=== PATIENT | female | born 1995 | race Caucasian/White ===

== ENCOUNTER 2021-04-23 14:12 | Emergency (ER) | payer OTHER, SELFPAY ==
--- NOTE | ~2021-04-23 | US_ITS ---
EXAMINATION: US pelvic complete w TV DATE: 04/23/2021 15:14 INDICATION: Heavy vaginal bleeding for 2 days. Comparison:No prior studies for comparison. TECHNIQUE: Multiple transabdominal and endovaginal sonographic images of the pelvis performed. FINDINGS: The uterus measures 9 x 5 x 5.3 cm. The endometrial complex is heterogeneous and thickened measuring 1.4 cm. The right ovary measures 3.3 x 1.8 x 2 cm and the left ovary measures 2.1 x 1.9 x 1.9 cm. There are small follicles in each ovary. Normal doppler signal in both ovaries. There is no free fluid in the pelvis. There are no abnormal masses seen on either side. IMPRESSION: 1. Thickened heterogeneous endometrium measuring 1.4 cm. Cannot exclude retained products of concepti on Reviewed, dictated and finalized at location A. IMPRESSION: 1. Thickened heterogeneous endometrium measuring 1.4 cm. Cannot exclude retaine d products of conception
[2021-04-23 14:20] VITALS: BP 108/79; PULSE 101; RESP 16; TEMP 36.9; O2SAT 100
--- NOTE | 2021-04-23 14:42 | ED.GENADULT ---
HPI - General Adult General Chief complaint: APPLICATION SOFTWARE DEVELOPER Stated complaint: Vaginal Bleeding Source: patient Mode of arrival: ambulatory Limitations: no limitations History of Present Illness HPI narrative: Vanesa is a 26F with a PMH of a mood disorder presented to the ED with excessive vaginal bleeding. She had an induced 2 weeks ago at 8 weeks gestation. She had mild to moderate bleeding afterward. However, 2 days ago she had excessive bleeding (10+pads) which improved yesterday but the same level of heavy bleeding returned today. She also has a lot of bilateral uterine cramping. She also feels weak and lightheaded with the bleeding. Related Data Home Medications Medication Instructions Recorded Confirmed escitalopram oxalate [Lexapro] 20 mg PO DAILY 04/23/21 04/23/21 Allergies Allergy/AdvReac Type Severity Reaction Status Date / Time No Known Allergies Allergy Verified 04/23/21 14:30 Review of Systems Constitutional: Constitutional: Denies chills, Denies fever(s) and Reports weakness Eyes: Eyes: Reports no additional eye complaints ENT: Reports system reviewed and no additional complaints, except as documented Cardiovascular: Cardiovascular: Reports no additional cardiovascular complaints Respiratory: Respiratory: Reports no additional respiratory complaints Gastrointestinal: Gastrointestinal: Reports no additional gastrointestinal complaints Genitourinary: Genitourinary: Reports as per HPI Musculoskeletal: Musculoskeletal: Reports no additional musculoskeletal complaints Integumentary/Breasts: Skin/Breast: Reports system reviewed and no additional complaints, except as docu Neurologic: Reports system reviewed and no additional complaints, except as documented Psychiatric: Psychiatric: Reports no additional psychiatric complaints Endocrine: Endocrine: Reports no additional endocrine complaints Hematologic/Lymphatic: Hematologic/Lymphatic: Reports no additional hematologic/lymphatic complaints Allergic/Immunologic: Allergic/Immunologic: Reports no additional allergic/immunologic complaints Exam Const: General: alert Orientation/consciousness: patient oriented x3 Limitations: No altered mental status Other: Was leaning over the bed rocking side to side with mild distress HENMT: Head: normal to inspection Other: atraumatic Eyes: Conjunctivae: conjunctivae normal Pupils: Equal, round and reactive pupils present Neck: Neck: normal visual inspection Chest: Chest palpation & inspection: normal inspection of the chest Resp: Effort & Inspection: normal respiratory effort Cardio: Rate: regular rate Rhythm: regular rhythm Skin: General skin exam: normal color Rashes: no rashes Neuro: General: patient oriented x3 and moves all extremities Extrem: General: normal to inspection Psych: Appearance: grossly normal Affect: Anxious affect present Thought content: Yes Normal thought content present Course Course Emergency Course: Ordered labs and US of her pelvis. She declined meds for pain. EXAMINATION: US pelvic complete w TV DATE: 04/23/2021 15:14 INDICATION: Heavy vaginal bleeding for 2 days. Comparison:No prior studies for comparison. TECHNIQUE: Multiple transabdominal and endovaginal sonographic images of the pelvis performed. FINDINGS: The uterus measures 9 x 5 x 5.3 cm. The endometrial complex is heterogeneous and thickened measuring 1.4 cm. The right ovary measures 3.3 x 1.8 x 2 cm and the left ovary measures 2.1 x 1.9 x 1.9 cm. There are small follicles in each ovary. Normal doppler signal in both ovaries. There is no free fluid in the pelvis. There are no abnormal masses seen on either side. IMPRESSION: 1. Thickened heterogeneous endometrium measuring 1.4 cm. Cannot exclude retained products of conception I called the transfer line and they contacted Dr. Saucedo who called back at 1611 who recommended transfer. However, shortly after this she passed out, went pale and had some non-b
[2021-04-23 14:55] LABS: Basophils Absolute Auto 0.03 K/mm3 (0.00-0.10); Basophils Percent Auto 0.3 % (0.0-1.0); Eosinophils Absolute Auto 0.26 K/mm3 (0.02-0.50); Eosinophils Percent Auto 2.5 % (1.0-6.0); Hematocrit 27.9 % (35.0-49.0); Hemoglobin 9.6 g/dL (12.0-15.0); Immature Granulocyte Absolute 0.08 K/mm3 (0.00-0.00); Immature Granulocyte Percent A 0.8 % (0.0-0.0); Lymphocytes Absolute Auto 2.19 K/mm3 (1.10-4.50); Lymphocytes Percent Auto 20.7 % (18.0-42.0); Mean Corpuscular HGB Conc 34.4 g/dL (32.0-36.0); Mean Corpuscular Hemoglobin 29.5 pg (27.0-31.0); Mean Corpuscular Volume 85.8 fL (78.0-102.0); Mean Platelet Volume 10.4 fl (9.2-11.8); Monocytes Absolute Auto 0.65 K/mm3 (0.10-0.90); Monocytes Percent Auto 6.1 % (2.0-11.0); Neutrophils Absolute Auto 7.4 K/mm3 (1.7-7.2); Neutrophils Percent Auto 69.6 % (50.0-70.0); Platelet Count Result 252 K/mm3 (150-420); Red Blood Count 3.25 M/mm3 (4.20-5.40); Red Cell Distribution Width 12.3 % (11.6-14.4); White Blood Count 10.6 K/mm3 (4.8-10.8)
[2021-04-23 15:08] LABS: Prothrombin Time 10.9 Seconds (9.50-12.10)
[2021-04-23 15:12] LABS: Alanine Aminotransferase 21 U/L (14-59); Albumin Level 3.9 g/dL (3.4-5.0); Alkaline Phosphatase 72 U/L (46-116); Anion Gap 11 mmol/L (8-16); Aspartate Amino Transferase 12 U/L (15-37); Bilirubin,Total 0.3 mg/dL (0.00-1.00); Blood Urea Nitrogen 11 mg/dL (7-18); Calcium 8.7 mg/dL (8.5-10.1); Carbon Dioxide 26 mmol/L (21-32); Chloride 106 mmol/L (98-108); Estimated CRCL calculation 99 ml/min; Estimated Glomerular Filt Rate > 60; Glucose 111 mg/dL (70-99); Osmolality Calculated 296 mOsm/kg (285-295); Potassium 3.5 mmol/L (3.5-5.1); Sodium 143 mmol/L (136-145); Total Protein 6.9 g/dL (6.4-8.2)
--- NOTE | 2021-04-23 15:58 | PC.NURSE ---
[facility] [employer] CONTACTED AT THIS TIME FOR TRANSFER. AWAITING CALL BACK.
[2021-04-23] MEDS: SODIUM CHLORIDE 0.9% IV 1,000 ML 2000 ML IV CONT (16:20)
[2021-04-23] MEDS: ONDANSETRON INJ 4 MG/2 ML VIAL IV PUSH (16:36)
--- NOTE | 2021-04-23 16:43 | PC.NURSE ---
call light initiated. RN arrives to room 3 to find patient pale, diaphoretic, vomiting, and unresponsive. RN calls for assistance. BP 72/39. IV initiated. Bolus init
[2021-04-23 17:17] LABS: Basophils Absolute Auto 0.01 K/mm3 (0.00-0.10); Basophils Percent Auto 0.1 % (0.0-1.0); Eosinophils Absolute Auto 0.15 K/mm3 (0.02-0.50); Eosinophils Percent Auto 1.5 % (1.0-6.0); Hematocrit 20.7 % (35.0-49.0); Immature Granulocyte Absolute 0.06 K/mm3 (0.00-0.00); Immature Granulocyte Percent A 0.6 % (0.0-0.0); Lymphocytes Absolute Auto 1.64 K/mm3 (1.10-4.50); Lymphocytes Percent Auto 16.7 % (18.0-42.0); Mean Corpuscular HGB Conc 33.8 g/dL (32.0-36.0); Mean Corpuscular Hemoglobin 29.4 pg (27.0-31.0); Mean Platelet Volume 11.3 fl (9.2-11.8); Monocytes Absolute Auto 0.45 K/mm3 (0.10-0.90); Monocytes Percent Auto 4.6 % (2.0-11.0); Neutrophils Absolute Auto 7.5 K/mm3 (1.7-7.2); Neutrophils Percent Auto 76.5 % (50.0-70.0); Platelet Count Result 192 K/mm3 (150-420); Red Blood Count 2.38 M/mm3 (4.20-5.40); Red Cell Distribution Width 12.4 % (11.6-14.4); White Blood Count 9.8 K/mm3 (4.8-10.8)
[2021-04-23 17:44] VITALS: BP 95/61; PULSE 86; RESP 10; O2SAT 100
== END 2021-04-23 17:40 | disposition short-term general hospital (02) ==
PROVIDERS: Emergency Provider Family Medicine
DX: O03.6 Delayed or excessive hemorrhage following complete or unspecified spontaneous abortion (principal)
CPT/HCPCS: 36415; 76830; 76856; 80053; 84702; 85025; 85610; 86850; 86900; 86901; 96361; 96374; 99285; J2405; J7030

== ENCOUNTER 2021-04-23 18:31 | Observation (INO) | payer OTHER, SELFPAY ==
[2021-04-23] VITALS (10 sets, daily range): BP systolic 90–112; BP diastolic 48–78; PULSE 65–97; RESP 14–18; TEMP 36.5–36.8; O2SAT 98–100; BMI 28.6
--- NOTE | 2021-04-23 18:20 | P.PNAN_ITS ---
Anes - Initial Pre Proc Eval Procedure: Operation Date: 04/23/21 18:45 Proposed Procedures p D&C Suction and Sharp - Jae Park DO Date/Time: 04/23/21 18:20 Surgeon: Jae Park DO Pre Op Diagnosis: retained products of conception Patient Data Age: 26 Gender: F Height: Weight: Allergies Allergy/AdvReac Type Severity Reaction Status Date / Time No Known Allergies Allergy Verified 04/23/21 14:30 Home Medications Medication Instructions Recorded Confirmed Type escitalopram oxalate [Lexapro] 20 mg PO DAILY 04/23/21 04/23/21 History Patient hx anesthesia problems: none Family hx anesthesia problems: none [facility] Past Medical History Medical History Anxiety Depression Anes - Eval Final PreProcedure Day of Procedure 04/23/21 18:20 Patient weight: overweight Heart: regular rate and rhythm Lungs: clear to auscultation Airway: Mallampati scale class 1 Neurological: alert and oriented Last oral intake: >/= 8 hours ASA classification: II Emergent: yes Anesthetic plan: proceed Anesthesia type and monitoring: general GIVS and standard monitoring Informed Consent: The patient's anesthetic plan and its attendant risks and benefits were discussed with the patient/family/POA. Questions were solicited and answers provided to the satisfaction of the patient/family/POA.
--- NOTE | 2021-04-23 18:30 | PM.IMHP ---
H&P: HPI History of Present Illness Date/Time: 04/23/21 18:30 Chief Complaint: Vaginal bleeding, acute blood loss anemia. Narrative: This is a previously healthy 26-year-old female who presented to the emergency department at the [facility] earlier today for evaluation of vaginal bleeding. She is 2 weeks status post medical termination of and she reports that initially she was having vaginal bleeding equivalent to that she would have with her normal menstrual cycle. Over the past 2 days she has had a dramatic increase in bleeding and reports going through 10+ pads a day. Today she was driving through the area on her way home about 3 hours north of here when she developed significant cramping with increasing bleeding as well as feelings of weakness and lightheadedness. While awaiting transfer to [place] for D&C with Dr. Park, she began feeling lightheaded, nauseated, and sweating and had a syncopal episode. At the time my evaluation she is in preop and looks well. She denies fever, chills, sweats, chest pain, shortness of breath, current abdominal pain, and dysuria. Review of Systems Review of Systems: Twelve systems were reviewed with pertinent positives and negatives as per HPI. No fever, chills, or sweats. No recent cold or flu symptoms. No known exposure to those positive for COVID-19. She denies chest pain shortness of breath. Except as documented, all other systems were reviewed and are negative. [facility] Past Medical History Medical History Anxiety Depression Surgical History Surgical History History of wisdom tooth extraction Family History Family History (Updated 04/23/21 @ 20:37 by Tonia Jacques PA-C) Other No significant family history Social History Social History (Updated 04/23/21 @ 20:38 by Tonia Jacques PA-C) Social History: Lives in [place], [place]. Nonsmoker. No alcohol or illicit substance use. She is an vfx artist. Meds Home Medications and Allergies Home Medications Medication Instructions Recorded Confirmed Type escitalopram oxalate [Lexapro] 20 mg PO DAILY 04/23/21 04/23/21 History Allergies Allergy/AdvReac Type Severity Reaction Status Date / Time No Known Allergies Allergy Verified 04/23/21 14:30 Vital Signs Vital Signs - 24 hr 04/23/21 19:06 04/23/21 19:21 04/23/21 19:35 Temperature 98.3 F Pulse Rate 97 85 80 Respiratory Rate 16 18 16 Blood Pressure 90/60 L 104/65 108/68 Pulse Oximetry 100 100 98 04/23/21 19:50 Temperature Pulse Rate 65 Respiratory Rate 14 Blood Pressure 112/58 L Pulse Oximetry 99 Exam Narrative: General: Well-developed female sitting up in bed no distress. HEENT: PERRL, EOMI. Sclerae anicteric. Oral mucosa moist. Oropharynx clear. Neck: Supple. Respiratory: Lungs are clear to auscultation bilaterally. Cardiovascular: Regular rate and rhythm with S1-S2. No murmur, rub, or gallop. Gastrointestinal: Abdomen is soft, nontender, and nondistended with positive bowel sounds. Skin: Warm and dry. No rash or lesions on limited exam. Extremities: No cyanosis, clubbing, or edema. Radial and pedal pulses intact. Neurological: Alert. Cranial nerves 2-12 are grossly intact. No gross focal deficits to casual conversation. Psychiatric: Pleasant and cooperative with normal mood and affect. Judgment and insight intact. H&P: Results Labs Labs: White blood cells 10.6, hemoglobin 9.6, hematocrit 27.9, platelets 252. PT 10.9, INR 1.0. Sodium 143, potassium 3.5, chloride 106, carbon dioxide 26, BUN 11, creatinine 0.81, glucose 111, calcium 8.7. Total bilirubin 0.3, AST 12, ALT 21, alkaline phosphatase 72. Beta hCG 4882. Imaging Pelvic US: Radiologist's impression: Thickened heterogeneous endometrium measuring 1.4 cm. Cannot exclude retained products of conception P Asse
--- NOTE | 2021-04-23 18:36 | PM.IMHP ---
H&P: HPI History of Present Illness Date/Time: 04/23/21 18:36 26yo s/p medical termination of 2 weeks ago presented to [facility] for heavy vaginal bleeding. She states that she has been experiencing intermittent bleeding since that time but today has been especially heavy. She is in transit to her home in 3-4 hours away. She had to stop many times during her drive due to her bleeding. She started to feel lightheaded and dizzy which prompted her to go to the hospital. In the [facility], she had a syncopal episode. Chief Complaint: Heavy vagina bleeding Review of Systems Constitutional: Constitutional: Reports weakness Cardiovascular: Cardiovascular: Reports no additional cardiovascular complaints Respiratory: Respiratory: Reports no additional respiratory complaints Gastrointestinal: Gastrointestinal: Reports no additional gastrointestinal complaints Genitourinary: Genitourinary: Reports abnormal vaginal bleeding Musculoskeletal: Musculoskeletal: Reports no additional musculoskeletal complaints Integumentary/Breasts: Skin/Breast: Reports system reviewed and no additional complaints, except as docu Neurologic: Reports dizziness and Reports weakness Psychiatric: Psychiatric: Reports no additional psychiatric complaints Endocrine: Endocrine: Reports no additional endocrine complaints Hematologic/Lymphatic: Hematologic/Lymphatic: Reports no additional hematologic/lymphatic complaints Allergic/Immunologic: Allergic/Immunologic: Reports no additional allergic/immunologic complaints PMFSH Past Medical History Medical History Anxiety Depression Meds Home Medications and Allergies Home Medications Medication Instructions Recorded Confirmed Type escitalopram oxalate [Lexapro] 20 mg PO DAILY 04/23/21 04/23/21 History Allergies Allergy/AdvReac Type Severity Reaction Status Date / Time No Known Allergies Allergy Verified 04/23/21 14:30 Exam Const: General: cooperative, healthy appearing, comfortable, no acute distress, well developed, alert, awake and Physically active Resp: Effort & Inspection: normal respiratory effort, able to speak in complete sentences, normal respiratory pattern, no audible wheezes and no cough Cardio: Rate: regular rate GI: Inspection: normal to inspection GI Palp: No abdominal tenderness, Yes Soft to palpation, No Firmness to palpation present (GI), No Tenderness to palpation present (GI), No Guarding due to palpation present (GI) and No Rigid due to palpation Skin: General skin exam: normal color Neuro: General: oriented to person, oriented to place and oriented to time Psych: Appearance: grossly normal Mental Status: mental status grossly normal Speech and movement: Normal speech and movement present Affect: normal affect Attitude: cooperative Thought process: Normal thought process present Thought content: Yes Normal thought content present Insight: Good insight present (Psych) Judgement: Good judgement present (Psych) Assessment and Plan Assessment and plan (1) complicated with hemorrhage: Code(s): O03.6 - Delayed or excessive hemorrhage following complete or unspecified spontaneous Status: Acute (2) Retained products of conception after induced termination of : Code(s): O07.4 - Failed attempted termination of without complication Status: Acute Assessment and Plan: US reviewed, endometrial stripe 1.4cm with retained products of conception Risks, benefits, alternatives discussed. Will proceed with Suction D&C (3) Acute blood loss anemia: Code(s): D62 - Acute posthemorrhagic anemia Status: Acute Assessment and Plan: Hb9 -> 7 Patient agrees to transfusion
--- NOTE | 2021-04-23 18:45 | WPDHPUPDATE1 ---
History and Physical Update Update Date/Time: 04/23/21 18:45 History and Physical has been reviewed, including an updated exam of the patient. There are NO changes in the patient's condition. Risks, benefits, and alternatives have been discussed and questions answered. Patient agrees to proceed with procedure.
[2021-04-23] MEDS: LACTATED RINGERS 1,000 ML 30 ML IV CONT (19:06)
--- NOTE | 2021-04-23 19:06 | PM.OP ---
Procedure Note - Brief Procedure Note - Brief Date of procedure: 04/23/21 Pre-op diagnosis: retained products of conception Post-op diagnosis: same Procedure performed: Suction D&C Anesthesia: GETA Surgeon: Jae Park DO Estimated blood loss (mL): 100 Drains: No Packing: No Pathology: yes Complications: No immediate complications Condition: stable Disposition: PACU Findings: Retained products of conception
--- NOTE | 2021-04-23 19:15 | W.PM.PROC2 ---
Procedure Note - Detailed Date of Procedure 04/23/21 Pre-op Diagnosis retained products of conception Post-op Diagnosis same Procedure Performed Suction D&C Surgeon Jae Park DO Anesthesia general Indications 26yo s/p medical termination of 2 weeks ago with retained products of conception Findings Retained products of conception Description of Procedure Patient was taken to the OR where she was moved to the OR table. After adequate anesthesia was established, patient was placed in dorsal lithotomy position with Ricardo stirrups for support. Vagina and perineum was prepped with Betadine. She was then draped in the usual sterile fashion. Timeout was performed to identify the correct patient and procedure. A speculum was inserted into the vagina, clots were noted. Sponge stick used to clear clots from the vagina. Anterior lip of cervix was grasped with single tooth tenaculum. Cervix was dilated with dilators. #8 suction curette was placed in the uterus and suction was turned on. Products of conception was obtained. 5 passed were made with the curette until the uterine cavity was thought to be empty. Minimal bleeding noted after the procedure. Tenaculum and speculum were removed. Good hemostasis noted. All sponge and instrument counts were correct and the patient was transferred to the recovery room in stable condition. Estimated Blood Loss 100.0 Drains No Packing No Pathology yes Complications No immediate complications Condition stable Disposition floor (Will keep for observation overnight for symptomatic anemia in context of hemorrhage with retained products of conception. )
--- NOTE | 2021-04-23 20:42 | SUR.PHASEI ---
PT REPORT CALLED TO FLOOR RN. AWAITING FOR TRANSPORT. SIGNIF OTHER UPDATED.
[2021-04-23] MEDS: IBUPROFEN 600 MG TABLET PO (21:23)
--- NOTE | 2021-04-23 21:31 | ADMGEN ---
This patient, Vanesa Jasso, was admitted to 2 Medical Room 242-01. Patient/family oriented to hospital policies and general routines including ID bracelet, bed and alarms, visiting hours, pain management, procedures, bathroom and other care routines, personal items, smoking policy, room service/diet, and visiting hours. Information on how to activate the Rapid Response Team has been discussed. Patient/Family are encouraged to report perceived risks to care and to ask questions if they do not understand what they are told or what they should do.
[2021-04-23] MEDS: ONDANSETRON INJ 4 MG/2 ML VIAL IV PUSH (22:03)
[2021-04-24] VITALS (12 sets, daily range): BP systolic 91–110; BP diastolic 45–63; PULSE 74–91; RESP 18–21; TEMP 36.1–36.4; O2SAT 98–100; BMI 28.8
[2021-04-24] MEDS: SODIUM CHLORIDE 0.9% IV 250 ML 30 ML IV CONT (01:29)
[2021-04-24] MEDS: FERROUS SULFATE 324 MG TABLET PO (09:07)
[2021-04-24] MEDS: ESCITALOPRAM OXALATE 10 MG TABLET 20 MG PO (09:07)
--- NOTE | 2021-04-24 09:56 | PM.DS ---
DS: Admitting Diagnosis Admitting Diagnosis Vaginal bleeding DS: Discharge Diagnosis Discharge Diagnosis (1) complicated with hemorrhage: Code(s): O03.6 - Delayed or excessive hemorrhage following complete or unspecified spontaneous Status: Inactive Assessment and Plan: Patient is a 26-year-old woman with no chronic medical history, who presented with vaginal bleeding. The patient states she found out she was in February [facility] . She had slight vaginal bleeding for a few weeks then it resolved. Then she developed heavy bleeding for a few days and it resolved. She went out of town and had been feeling well until she got in the car to drive back home. She developed more vaginal bleeding over the next [address] in developed associated lightheadedness, dizziness. She came to the nearest emergency room for further evaluation. Initial vitals showed she was afebrile, non tachycardic, low blood pressure and 90/60, pulse ox 100% on room air. Initial labs showed a hemoglobin of 9.6, hematocrit 27. Normal coag panel. CMP showed beta hCG quant at 4882. Pelvic transvaginal ultrasound showed thickened heterogeneous endometrium measuring 1.4 cm. Cannot exclude retained products of conception. Dr. Park INFORMATION TECHNOLOGY ANALYST was consulted in took the patient to the OR for a D&C and removal of the retained products of conception. The patient tolerated the procedure well. hemoglobin was then found to be 7.0 in she was received 2 units of PRBCs. She was feeling much better today, back to her baseline. Hemoglobin improved to 9.2 after transfusion. Patient denies much vaginal bleeding at this time. She was seen by the wire harness design engineer who felt she was stable to be discharged. They recommended her to stay on iron once daily for 2 months. Follow-up with her OBGYN when she returns back home in 1 week for further evaluation and monitoring after surgery. The patient was discharged in stable condition. She understands when to return to the emergency room for further evaluation monitoring. She understands and agrees the plan all questions answered. (2) Acute blood loss anemia: Code(s): D62 - Acute posthemorrhagic anemia Status: Acute (3) Depression with anxiety: Code(s): F41.8 - Other specified anxiety disorders Status: Acute Assessment and Plan: No acute issues. Continue Lexapro. (4) Syncope: Code(s): R55 - Syncope and collapse Status: Acute Assessment and Plan: Related to acute blood loss and/or vasovagal response. Other etiologies less likely. DS: Summary Hospital Course Hospital Course: See ABOVE Status at Discharge Cognitive/behavioral status at discharge: Stable, improved. Time Spent with Patient Time attestation: Total time spent providing and/or coordinating discharge services: 43 Time spent: Greater than 30 minutes Exam Narrative: General: *-year-old * laying flat in bed. Appears comfortable. In no acute distress. Skin: No jaundice or cyanosis. Good skin turgor. Neck: Full range of motion. Supple. Nontender. Respiratory: Lungs are clear to auscultation bilaterally. No bony chest wall tenderness. Cardiovascular: The heart has a regular rate and rhythm without murmur. No carotid bruits. Lower extremities: No lower extremity edema. Distal pulses are easily palpated. No calf tenderness to palpation. Gastrointestinal: The abdomen is soft, nontender and nondistended with active bowel sounds. Psychiatric: Lucid and oriented. Memory intact. Neurologic: No focal deficits. Speech is clear. No facial drooping. DS: Data Data Completed and Pending Pending studies at discharge: Pending at discharge 04/23/21 18:57 Surgical [PTH] Routine Labs on day of discharge: Labs from last 24 hours 04/24/21 04/23/21 09:02 22:08 Sodium Pending Potassium Pending Chloride Pending
[2021-04-24 10:02] LABS: Anion Gap 9 mmol/L (8-16); Blood Urea Nitrogen 12 mg/dL (7-17); Calcium 8.4 mg/dL (8.4-10.2); Carbon Dioxide 18 mmol/L (22-30); Chloride 111 mmol/L (98-107); Estimated CRCL calculation 115 ml/min; Estimated Glomerular Filt Rate > 60; Glucose 89 mg/dL (65-110); Magnesium 1.8 mg/dL (1.6-2.3); Potassium 4.3 mmol/L (3.4-5.0); Sodium 138 mmol/L (137-145)
[2021-04-24 10:04] LABS: Hematocrit 27.2 % (37.0-47.0); Hemoglobin 9.2 g/dL (12.0-15.0); Mean Corpuscular HGB Conc 33.8 g/dl (32-36); Mean Corpuscular Hemoglobin 29.9 pg (26-34); Mean Corpuscular Volume 88.3 fl (80-100); Platelet Count Result 172 k/mm3 (150-375); Red Blood Count 3.08 M/mm3 (4.2-5.4); Red Cell Distribution Width 13.2 % (11.5-14.5); White Blood Count 8.4 K/mm3 (4.5-10.0)
== END 2021-04-24 12:45 | disposition home or self-care (01) ==
LOC: ANHICU 18:37 → ANH2MED 19:51
PROVIDERS: Obstetrics & Gynecology; Physician Assistant; Admitting Provider Hospitalist; Visit Provider Internal Medicine
PROC: (CPT 59812; principal; 2021-04-23 18:45)
DX: O07.1 Delayed or excessive hemorrhage following failed attempted termination of pregnancy (principal); N93.9 Abnormal uterine and vaginal bleeding, unspecified; D62 Acute posthemorrhagic anemia
CPT/HCPCS: 59812; 36415; 36430; 80048; 83735; 85027; 86850; 86900; 86901; 86920; 88305; 96361; 96374; A9270; G0378; G0379; J2405; J7050; J7120; P9016